=== PATIENT | female | born 1940 | race Caucasian/White ===

== ENCOUNTER → 2024-06-29 12:16 | Outpatient (CLI) | payer MEDICARE, SELFPAY ==
--- NOTE | 2024-06-29 12:20 | DI.ECHO.S_ITS ---
[facility] : : [address] : : [place] : : [id number] : : Phone: [phone] Echocardiogram Report + + :Name: ROSA REYES Study Date: 06/29/2024 Height: 62 in : :[facility] ReadingLocation: Weight: 144 lb : : Gender: Female BSA: 1.7 m2 : :: 1940 Age: 83 yrs BP: 140/97 mmHg: :Reason For Study: ATRIAL FIBRILLATION : :Ordering Physician: ANTHONY HODGES Performed By: Beth Lewis : :Referring: ANTHONY HODGES : + + Interpretation Summary 1. Normal LV contractility. EF > 55%. No WMA. No LVH. Unable to comment on diastolic function. 2. Normal RV contractility. 3. Severe VANDANA. Mild RVE. 4. Moderate TR with esmiated PSAP of 47-52 mmHg. 5. Trace to mild MR. 6. No obvious intracardiac shunts. 7. No obvious intracardiac masses/thrombi. 8. No hemodynamically significant pericardial effusion. Conclusion: Normal biventricular systolic function with moderately elevated pulmonary arterial pressures. Procedure: A two-dimensional transthoracic echocardiogram with color flow and Doppler was performed. The study quality was technically adequate. There is no prior echocardiogram noted for this patient. The patient was in atrial fibrillation with heart rates between 94-115 bpm during the exam. Left Ventricle: The left ventricle is normal in size and wall thickness. The ejection fraction is estimated to be 55-60%. Diastolic function could not be accurately assessed due to atrial fibrillation. Right Ventricle: The right ventricle is mildly dilated. The right ventricular systolic function is normal. Atria: The left atrium is severely dilated. The right atrium is severely dilated. There is no Doppler evidence for an interatrial shunt. Mitral Valve: The mitral valve leaflets are mildly calcified. There is mild mitral regurgitation. Aortic Valve: The aortic valve is trileaflet. The aortic valve opens well. There is no aortic valve stenosis. There is trace aortic regurgitation. Tricuspid Valve: The tricuspid valve leaflets are thin and pliable. There is moderate tricuspid regurgitation. Pulmonic Valve: The pulmonic valve leaflets are thin and pliable; valve motion is normal. There is trace pulmonic regurgitation. Great Vessels: The aortic root is normal size. The dimensions of the ascending aorta are normal. Pericardium/ Pleura There is no pericardial effusion. There is no pleural effusion. MMode/2D Measurements & Calculations LVIDd: 4.0 cm LVOT diam: 1.9 cm LVIDs: 2.6 cm Ao root diam: 2.9 cm FS: 34.6 % asc Aorta Diam: 3.2 cm IVSd: 0.68 cm Ao Arch Diam (Prox Trans): 3.1 cm LVPWd: 0.78 cm LV villa. diameter/BSA (cm/m^2): 2.4 LV sys. diameter/BSA (cm/m^2): 1.6 LA A2 area: 31.2 cm2 RA long axis: 5.8 cm LA A4 area: 31.6 cm2 RA area: 29.3 cm2 LA length (vol): 6.5 cm RA vol: 124.7 ml LA vol: 128.8 ml RA : 75.0 ml/m2 LA vol index: 77.5 ml/m2 IVC diam: 2.5 cm RVD1 (basal): 4.2 cm TAPSE: 1.6 cm Doppler Measurements & Calculations Ao V2 max: 96.5 cm/sec LVOT Max Raul: 67.8 cm/sec Ao V2 mean: 68.5 cm/sec LV V1 max P.8 mmHg Ao max P.7 mmHg LV V1 VTI: 13.6 cm Ao mean P.1 mmHg LADI(I,D): 2.3 cm2 Ao V2 VTI: 16.4 cm LADI(V,D): 1.9 cm2 sev ratio: 0.83 LADI indexed to BSA (cm^2/m^2): 1.4 MV E max raul: 74.5 cm/sec TR max raul: 303.1 cm/sec MV A max raul: 0.91 cm/sec TR max P.7 mmHg MV E/A: 81.7 PA V2 max: 93.9 cm/sec Med Peak E' Raul: 9.9 cm/sec PA V2 mean: 70.1 cm/sec E/E' med: 7.5 PA mean P.1 mmHg Lat Peak E' Raul: 12.9 cm/sec PA pr(Accel): 55.0 mmHg E/E' lat: 5.8 E/e' average: 6.6 MV dec time: 0.21 sec ([facility]): 37.1 ml Reading Physician:
== END ==
PROVIDERS: Referring Provider Internal Medicine; Visit Provider Internal Medicine
DX: I48.21 Permanent atrial fibrillation (principal); I08.1 Rheumatic disorders of both mitral and tricuspid valves
CPT/HCPCS: 93306